=== PATIENT | male | born 1960 | race Caucasian/White ===

== ENCOUNTER 2016-09-17 09:53 | Emergency (ER) | payer MEDICARE, SELFPAY ==
[~2016-09-17] VITALS: Ht 170.2 cm; Wt 88.2 kg
[2016-09-17 10:43] VITALS: BP 112/77
== END 2016-09-17 10:46 | disposition home or self-care (01) ==
LOC: ED 10:35
DX: H66.92 Otitis media, unspecified, left ear (principal); H72.91 Unspecified perforation of tympanic membrane, right ear; H66.91 Otitis media, unspecified, right ear; J01.00 Acute maxillary sinusitis, unspecified; F17.210 Nicotine dependence, cigarettes, uncomplicated
CPT/HCPCS: 99283